=== PATIENT | male | born 1970 | race Caucasian/White ===

== ENCOUNTER → 2020-11-08 | Outpatient (CLI) | payer BC ==
--- NOTE | 2020-11-08 09:29 | CT ---
EXAMINATION TYPE: CT abdomen pelvis wo con DATE OF EXAM: 11/08/2020 COMPARISON: None HISTORY: Kidney stone, hematuria CT DLP: 715.6 mGycm Automated exposure control for dose reduction was used. TECHNIQUE: Helical acquisition of images was performed from the lung bases through the pelvis. FINDINGS: The visualized portions lung bases are clear. There are no gallstones. The gallbladder is not distended and there is no gross biliary ductal dilata tion. There is no organomegaly involving the liver, pancreas, spleen or adrenal glands. There is mild left hydronephrosis and left hydroureter. There is a 3 mm calculus in the region of the left UVJ. There is mild focal thickening of the posterior wall the urinary bladder. There is mild en largement of the prostate gland and there is dense prostatic calcification. The bowel loops are normal in caliber. No inflammatory changes are identified in the mesentery. There is no free intraperitoneal air or fluid. The caliber of the abdominal aorta is normal and there is no retroperitoneal adenopathy or hemorrhage . The osseous structures and soft tissues are intact. IMPRESSION: Mild left hydronephrosis and hydroureter secondary to 3 mm calculus in the left UVJ. There is questio nable mild thickening or mass the posterior wall of the urinary bladder in the region of the UVJ. Fur ther evaluation with post IV contrast CT abdomen and pelvis might be useful for further evaluation or characterization of the urinary bladder abnormality.
== END | disposition home or self-care (01) ==
LOC: RADCTMAIN 08:55
PROVIDERS: ATTEND Family Medicine
DX: N13.2 Hydronephrosis with renal and ureteral calculous obstruction (principal)
CPT/HCPCS: 74176

== ENCOUNTER 2023-03-25 18:18 | Observation (INO) | payer BC ==
--- NOTE | 2023-03-25 18:38 | ED ---
Recheck HPI - General Source: patient, family, RN notes reviewed Mode of arrival: ambulatory Limitations: no limitations - History of Present Illness MD Complaint: other (Elevated BP) <Bruna Aguirre - Last Filed: 03/25/23 18:42> <Efrain Garcia - Last Filed: 03/25/23 20:36> - General Chief Complaint: Recheck/Abnormal Lab/Rx Stated Complaint: High Blood Pressure, Lightheaded Time Seen by Provider: 03/25/23 18:37 - History of Present Illness Initial Comments: This is a 52 year old male who presents to the emergency department for elevated blood pressure. States that this morning he felt lightheaded and flush. This prompted him to check his BP, and he states that it was elevated. This seemed to improve and he used his exercise bike. States that about 15 minutes after he got off, his BP was elevated again and he felt lightheaded and flush. He is no longer taking BP medication, as his PCP is no longer in business, and he has not yet established with a new PCP. Reports one episode of chest pain earlier today. Denies any headaches or visual changes. (Bruna Aguirre) Dictation was produced using [employer] dictation software. please excuse any grammatical, word or spelling errors. Chief Complaint: 52-year-old male presents with hypertension History of Present Illness: Patient is 52-year-old male who has past medical hi story dyslipidemia and hypertension. He has had hypertension for several years. He spent lisinopril. He is having trouble following up with primary care doctor because his primary care physician closest practice. He hasn't had any blood pressure medications for several months. Denies any chest pain. No shortness of breath or strokelike symptoms. Denies any headache. The ROS documented in this emergency department record has been reviewed and confirmed by me. Those systems with pertinent positive or negative responses have been documented in the HPI. All other systems are other negative and/or noncontributory. (Efrain Garcia) - Related Data Home Medications Medication Instructions Recorded Confirmed Ascorbic Acid [Vitamin C] 1,000 mg PO Q3D 03/25/23 03/25/23 Aspirin EC [Ecotrin Low Dose] 81 mg PO DAILY 03/25/23 03/25/23 Cholecalciferol (Vitamin D3) 125 mcg PO Q3D 03/25/23 03/25/23 [Vitamin D3 (125 MCG = 5,000 IU)] Magnesium 350mg 350 mg PO HS 03/25/23 03/25/23 Allergies Allergy/AdvReac Type Severity Reaction Status Date / Time No Known Allergies Allergy Verified 03/25/23 19:56 Review of Systems ROS Other: All systems not noted in ROS Statement are negative. <Bruna Aguirre - Last Filed: 03/25/23 18:42> ROS Other: All systems not noted in ROS Statement are negative. <Efrain Garcia - Last Filed: 03/25/23 20:36> ROS Statement: Those systems with pertinent positive or pertinent negative responses have been documented in the HPI. General Exam <Bruna Aguirre - Last Filed: 03/25/23 18:42> <Efrain Garcia - Last Filed: 03/25/23 20:36> - General Exam Comments Initial Comments: Visual Physical Exam Vital signs reviewed General: Well-appearing, nontoxic, no acute distress. Head: Normocephalic, atraumatic Eyes: PERRLA, EOMI ENT: Airway patent Chest: Nonlabored breathing Skin: No visual rash, normal skin tone Neuro: Alert and oriented 3 Musculoskeletal: No gross abnormalities I performed the QuickNote portion of this chart. Signed Bruna Aguirre PA-C. (Bruna Aguirre) PHYSICAL EXAM: General Impression: Alert and oriented x3, not in acute distress HEENT: Normocephalic atraumatic, extra-ocular movements intact, pupils equal and reactive to light bilaterally, mucous membranes moist. Cardiovascular: Heart regular rate and rhythm Chest: Able to complete full sentences, no retractions, no tachypnea Abdomen: abdomen soft, non-tender, non-distended, no organomegaly Musculoskeletal: Pulses present and equal in all extremities, no peripheral edema Motor: no focal deficits noted Neurological: CN II-XII grossly intact, no focal motor or sensory deficits noted Skin: Intact with no visualized rashes Psych: Normal affect and mood (Efrain Garcia) Course <Efrain Garcia - Last Filed: 03/25/23 20:36> Vital Signs 03/25/23 03/25/23 03/25/23 18:35 19:20 19:45 Temperature 98.2 F Pulse Rate 102 H 105 H 111 H Respiratory 20 16 18 Rate Blood Pressure 237/118 228/120 238/107 O2 Sat by Pulse 96 95 96 Oximetry 03/25/23 03/25/23 20:15 20:20 Temperature 98.1 F Pulse Rate 107 H 100 Respiratory 18 14 Rate Blood Pressure 211/104 190/110 O2 Sat by Pulse 96 97 Oximetry - Reevaluation(s) Reevaluation #1: 03/25/23 19:17 My EKG interpretation: Ventricular rate 90, sinus rhythm,. Interval 85, QRS 15, QTc 387. No [place] prolongation, no QTC prolongation, no ST or T-wave changes noted. Overall, this EKG is unremarkable (Efrain Garcia) Reevaluation #2: 03/25/23 19:17 This is seen and evaluated in room #24. Vital signs shows blood pressure 237/118, heart rate is 102, rest of vital signs within acceptable limits. Patient has a poor social situation. He does not have any axis or reasonable access to a primary care doctor for outpatient management of blood pressure management. He is currently not on any medications for blood pressure due to noncompliance. He is agreeable for admission. Clinical presentation consistent with asymptomatic hypertension. 03/25/23 19:18 (Efrain Garcia) Medical Decision Making - Lab Data Result diagrams: 03/25/23 18:59 03/25/23 18:59 <Efrain Garcia - Last Filed: 03/25/23 20:36> - Medical Decision Making Was pt. sent in by a medical professional or institution (, PA, STRIP POLISHER, urgent care, hospital, or long-term...) When possible be specific @ -No Did you speak to anyone other than the patient for history (EMS, parent, family, police, friend...)? What history was obtained from this source @ -No Did you review nursing and triage notes (agree or disagree)? Why? @ -I reviewed and agree with nursing and triage notes Were old charts reviewed (outside hosp., previous admission, EMS record, old EKG, old radiological studies, urgent care reports/EKG's, long-term records)? Report findings @ -No old charts were reviewed Differential Diagnosis (chest pain, altered mental status, abdominal pain women, abdominal pain men, vaginal bleeding, musculoskeletal, weakness, fever, dyspnea, syncope, headache, dizziness, GI bleed, back pain, seizure, CVA, palpatations, mental health)? @ -not applicable EKG interpreted by me (3pts min.). @ -None done X-rays interpreted by me (1pt min.). @ -None done CT interpreted by me (1pt min.). @ -None done U/S interpreted by me (1pt. min.). @ -None done What testing was considered but not performed or refused? (CT, X-rays, U/S, labs)? Why? @ -None What meds were considered but not given or refused? Why? @ -None Did you discuss the management of the patient with other professionals (professionals i.e. , PA, STRIP POLISHER, lab, RT, psych nurse, rn social services, fur glosser, teacher, traffic officer, rifle case repairer)? Give summary @ -Discussed with Dr. Thomson for observation admission. She requested patient be started on oral lisinopril and have when necessary hydralazine Was smoking cessation discussed for >3mins.? @ -No Was critical care preformed (if so, how long)? @ -No Were there social determinants of health that impacted care today? How? (Homelessness, low income, unemployed, alcoholism, drug addiction, transport ation, low edu. Level, literacy, decrease access to med. care, group home, rehab)? @ -No Was there de-escalation of care discussed even if they declined (Discuss DNR or withdrawal of care, Hospice)? DNR status @ -No What co-morbidities impacted this encounter? (DM, HTN, Smoking, COPD, CAD, Cancer, CVA, ARF, Chemo, Hep., AIDS, mental health diagnosis, sleep apnea, morbid obesity)? @ -None Was patient admitted / discharged? Hospital course, mention meds given and route, prescriptions, significant lab abnormalities, going to OR and other pertinent info. @ -52-year-old male presents to the emergency Department with malignant hypertension. He is asymptomatic. Vital signs upon arrival shows blood pressure 237/118. Laboratory evaluation is unremarkable. No elevated renal function. Patient would likely benefit from observation admission for blood pressure control and establishment of blood pressure medications. Patient recently lost his primary care doctor and will have likely difficulty getting an outpatient appointment within a reasonable time. Patient grew for admission. Started on lisinopril and hydralazine. Undiagnosed new problem with uncertain prognosis? @ -No Drug Therapy requiring intensive monitoring for toxicity (Heparin, Nitro, Insulin, Cardizem)? @ -No Were any procedures done? @ -No Diagnosis/symptom? Acute, or Chronic, or Acute on Chronic? Uncomplicated (without systemic symptoms) or Complicated (systemic symptoms)? @ -Malignant hypertension Side effects of treatment? @ -No Exacerbation, Progression, or Severe Exacerbation? @ -No Poses a threat to life or bodily function? How? (Chest pain, [place], [place], pneumonia, PE, COPD, DKA, ARF, appy, cholecystitis, CVA, Diverticulitis, Homicidal, Suicidal, threat to staff... and all critical care pts) @ -yes (Efrain Garcia) - Lab Data Lab Results 03/25/23 03/25/23 03/25/23 Range/Units 18:59 18:59 18:59 WBC 9.2 (3.8-10.6) k/uL RBC 5.70 (4.30-5.90) m/uL Hgb 17.0 (13.0-17.5) gm/dL Hct 51.3 (39.0-53.0) % MCV 90.1 (80.0-100.0) fL MCH 29.9 (25.0-35.0) pg MCHC 33.1 (31.0-37.0) g/dL RDW 13.1 (11.5-15.5) % Plt Count 270 (150-450) k/uL MPV 7.2 Neutrophils % 62 % Lymphocytes % 30 % Monocytes % 5 % Eosinophils % 1 % Basophils % 0 % Neutrophils # 5.7 (1.3-7.7) k/uL Lymphocytes # 2.7 (1.0-4.8) k/uL Monocytes # 0.5 (0-1.0) k/uL Eosinophils # 0.1 (0-0.7) k/uL Basophils # 0.0 (0-0.2) k/uL Sodium 139 (137-145) mmol/L Potassium 4.0 (3.5-5.1) mmol/L Chloride 101 (98-107) mmol/L Carbon Dioxide 27 (22-30) mmol/L Anion Gap 11 mmol/L BUN 15 (9-20) mg/dL Creatinine 0.78 (0.66-1.25) mg/dL Est GFR (CKD-EPI)AfAm >90 (>60 ml/min/1.73 sqM) Est GFR (CKD-EPI)NonAf >90 (>60 ml/min/1.73 sqM) Glucose 106 H (74-99) mg/dL Calcium 10.1 (8.4-10.2) mg/dL Total Bilirubin 0.5 (0.2-1.3) mg/dL AST 37 (17-59) U/L ALT 40 (4-49) U/L Alkaline Phosphatase 64 (38-126) U/L Troponin I <0.012 (0.000-0.034) ng/mL Total Protein 8.2 (6.3-8.2) g/dL Albumin 4.7 (3.5-5.0) g/dL Disposition <Bruna Aguirre - Last Filed: 03/25/23 18:42> Decision Time: 20:36 <Efrain Garcia - Last Filed: 03/25/23 20:36> Clinical Impression: Hypertension Disposition: ADMITTED IP TO THIS HOSP Condition: Fair Referrals: None,Stated [Primary Care Provider] - 1-2 days
[2023-03-25] MEDS ORDERED: LABETALOL 5 MG/ML VIAL MDV IVP STA (19:13)
[2023-03-25] MEDS ORDERED: hydrALAZINE HCL 20 MG/ML 1 ML VIAL IVP STA ×2 (19:15→20:05)
[2023-03-25 19:30] LABS: Basophils % (A) 0 %; Eosinophils # (A) 0.1 k/uL (0-0.7); Eosinophils % (A) 1 %; HCT 51.3 % (39.0-53.0); Lymphocytes # (A) 2.7 k/uL (1.0-4.8); Lymphocytes % (A) 30 %; MCH 29.9 pg (25.0-35.0); MCHC 33.1 g/dL (31.0-37.0); MCV 90.1 fL (80.0-100.0); Mean Platelet Volume 7.2; Monocytes # (A) 0.5 k/uL (0-1.0); Monocytes % (A) 5 %; Neutrophils # (A) 5.7 k/uL (1.3-7.7); Neutrophils % (A) 62 %; Platelet Count 270 k/uL (150-450); RDW 13.1 % (11.5-15.5); WBC 9.2 k/uL (3.8-10.6)
[2023-03-25 19:42] LABS: ALT 40 U/L (4-49); AST 37 U/L (17-59); African American GFR (CKD) >90 (>60 ml/min/1.73 sqM); Albumin 4.7 g/dL (3.5-5.0); Alkaline Phosphatase 64 U/L (38-126); Anion Gap 11 mmol/L; Blood Urea Nitrogen 15 mg/dL (9-20); Calcium 10.1 mg/dL (8.4-10.2); Carbon Dioxide 27 mmol/L (22-30); Chloride 101 mmol/L (98-107); Glucose 106 mg/dL (74-99); Non-African American GFR(CKD) >90 (>60 ml/min/1.73 sqM); Sodium 139 mmol/L (137-145); Total Bilirubin 0.5 mg/dL (0.2-1.3); Total Protein 8.2 g/dL (6.3-8.2)
[2023-03-25] MEDS ORDERED: hydrALAZINE HCL 20 MG/ML 1 ML VIAL IVP PRN (20:22)
[2023-03-25] MEDS ORDERED: NALOXONE 0.4 MG/ML 1 ML VIAL IV PRN (20:26)
[2023-03-25] MEDS: SODIUM CHLORIDE 0.9% 1,000 ML IV SCH (20:33)
[2023-03-25] MEDS ORDERED: SODIUM CHLORIDE 0.9% 1,000 ML IV STA (20:54)
[2023-03-26] MEDS ORDERED: ACETAMINOPHEN TAB 325 MG TAB PO STA ×2 (02:51→08:41)
--- NOTE | 2023-03-26 08:24 | P.CRDCN ---
History of Present Illness History of present illness: HISTORY OF PRESENT ILLNESS: This is a 52-year-old male with a past medical history significant for hypertension and hyperlipidemia. Patient does not follow with a postdoctoral scientist. We have been asked to see the patient in consultation for hypertension. Patient examined at the bedside. Patient states yesterday morning he felt flushed and felt as though his blood pressure is elevated. He states he decided to go to work anyways in the morning. Once he got home he states that he wrote on his exercise bike for about an hour and felt fine with no symptoms. He states afterwards he sat down to relax and watch some TV and started to feel flush again. He became concerned so he told his he needed to come to the emergency room for further evaluation. Patient denies any chest pain or pressure. He denies any shortness of breath. Blood pressure is elevated with systolic around 200. Patient states he has not been taking his blood pressure medications for approximately 2 years. * EKG reveals sinus mechanism with no signs of acute ischemia * Laboratory data: WBC 9.2. Hemoglobin 17.0. Platelet count 270. Sodium 139. Potassium 4.0. BUN 15. Creatinine 0.78. Troponin negative 1 * Current home cardiac medications include none REVIEW OF SYSTEMS: At the time of my exam: CONSTITUTIONAL: Denies fever or chills. HEENT: Denies blurred vision, vision changes, or eye pain. Denies hemoptysis CARDIOVASCULAR: Denies chest pain. Denies orthopnea. Denies PND. Denies palpitations RESPIRATORY: Denies shortness of breath. GASTROINTESTINAL: Denies abdominal pain. Denies nausea or vomiting. HEMATOLOGIC: Denies bleeding disorders. GENITOURINARY: Denies any blood in urine. SKIN: Denies pruitis. Denies rash. PHYSICAL EXAM: VITAL SIGNS: Reviewed. GENERAL: Well-developed in no acute distress. HEENT: Head is normocephalic. Pupils are equal, round. Sclerae anicteric. Mucous membranes of the mouth are moist. Neck supple. No JVD or thyromegaly LUNGS: Respirations even and unlabored. Lungs essentially clear to auscultation bilaterally. HEART: Regular rate and rhythm. S1 and S2 heard. ABDOMEN: Soft. Nondistended. Nontender. EXTREMITIES: Normal range of motion. No clubbing or cyanosis. Peripheral pu lses intact. No lower extremity edema NEUROLOGIC: Awake and alert. Oriented x 3. ASSESSMENT: Hypertensive emergency Medication noncompliance, patient states he has not been taking medications for 2 years Hyperlipidemia PLAN: Patient has been started on lisinopril 20 g daily per ER physician Add amlodipine 10 mg daily and metoprolol tartrate 50 mg twice a day Continue to monitor blood pressure Add atorvastatin and fenofibrate to medication regimen as patient states he was taking these previously Obtain lipid panel, hemoglobin A1c, and TSH Obtain 2-D echo to assess cardiac structure and function Continue to monitor patient for an additional 24 hours Further recommendations pending patient's course Nurse practitioner note has been reviewed by physician. Signing provider agrees with the documented findings, assessment, and plan of care. Past Medical History Past Medical History: Hyperlipidemia, Hypertension History of Any Multi-Drug Resistant Organisms: None Reported Past Surgical History: No Surgical Hx Reported Past Anesthesia/Blood Transfusion Reactions: No Reported Reaction Past Psychological History: No Psychological Hx Reported Smoking Status: Former smoker Past Alcohol Use History: Occasional Past Drug Use History: None Reported Medications and Allergies Home Medications Medication Instructions Recorded Confirmed Type Ascorbic Acid [Vitamin C] 1,000 mg PO Q3D 03/25/23 03/25/23 History Aspirin EC [Ecotrin Low Dose] 81 mg PO DAILY 03/25/23 03/25/23 History Cholecalciferol (Vitamin D3) 125 mcg PO Q3D 03/25/23 03/25/23 History [Vitamin D3 (125 MCG = 5,000 IU)] Magnesium 350mg 350 mg PO HS 03/25/23 03/25/23 History Allergies Allergy/AdvReac Type Severity Reaction Status Date / Time No Known Allergies Allergy Verified 03/25/23 19:56 Physical Exam Vitals: Vital Signs Temp Pulse Resp BP Pulse Ox 03/26/23 06:59 100 16 195/101 97 03/26/23 04:47 111 H 16 186/95 97 03/26/23 01:36 105 H 16 193/113 96 03/26/23 00:30 105 H 16 195/105 97 03/25/23 23:04 112 H 16 219/114 97 03/25/23 21:33 110 H 16 198/107 96 03/25/23 21:00 98.6 F 03/25/23 20:42 98.7 F 03/25/23 20:20 98.1 F 100 14 190/110 97 03/25/23 20:15 107 H 18 211/104 96 03/25/23 19:45 111 H 18 238/107 96 03/25/23 19:20 105 H 16 228/120 95 03/25/23 18:35 98.2 F 102 H 20 237/118 96 Intake and Output 03/25/23 03/26/23 03/26/23 22:59 06:59 14:59 Other: Weight 95.254 kg Results 03/25/23 18:59 03/25/23 18:59 Cardiac Enzymes 03/25/23 03/25/23 Range/Units 18:59 18:59 AST 37 (17-59) U/L Troponin I <0.012 (0.000-0.034) ng/mL CBC 03/25/23 Range/Units 18:59 WBC 9.2 (3.8-10.6) k/uL RBC 5.70 (4.30-5.90) m/uL Hgb 17.0 (13.0-17.5) gm/dL Hct 51.3 (39.0-53.0) % Plt Count 270 (150-450) k/uL Comprehensive Metabolic Panel 03/25/23 Range/Units 18:59 Sodium 139 (137-145) mmol/L Potassium 4.0 (3.5-5.1) mmol/L Chloride 101 (98-107) mmol/L Carbon Dioxide 27 (22-30) mmol/L BUN 15 (9-20) mg/dL Creatinine 0.78 (0.66-1.25) mg/dL Glucose 106 H (74-99) mg/dL Calcium 10.1 (8.4-10.2) mg/dL AST 37 (17-59) U/L ALT 40 (4-49) U/L Alkaline Phosphatase 64 (38-126) U/L Total Protein 8.2 (6.3-8.2) g/dL Albumin 4.7 (3.5-5.0) g/dL Current Medications Generic Name Dose Route Start Last Admin Trade Name Freq PRN Reason Stop Dose Admin Amlodipine Besylate 10 mg 03/26/23 09:00 Amlodipine 10 Mg Tab PO DAILY ALISTAIR Sodium Chloride 1,000 mls @ 20 mls/hr 03/25/23 20:30 03/25/23 20:33 Saline 0.9% IV 20 mls/hr .Q24H ALISTAIR Administration Lisinopril 20 mg 03/26/23 09:00 Lisinopril 20 Mg Tab PO DAILY ALISTAIR Metoprolol Tartrate 50 mg 03/26/23 09:00 Metoprolol Tartrate 50 Mg Tab PO BID ALISTAIR Naloxone HCl 0.2 mg 03/25/23 20:26 Naloxone 0.4 Mg/Ml 1 Ml Vial IV Q2M PRN Opioid Reversal Intake and Output 03/25/23 03/26/23 03/26/23 22:59 06:59 14:59 Other: Weight 95.254 kg 03/25/23 18:59 03/25/23 18:59
[2023-03-26] MEDS: FENOFIBRATE 160 MG TAB PO SCH (08:49)
[2023-03-26] MEDS: METOPROLOL TARTRATE 50 MG TAB PO SCH ×2 (08:50→19:52)
[2023-03-26] MEDS: lisinopriL 20 MG TAB PO SCH (08:50)
[2023-03-26] MEDS: amLODIPine 10 MG TAB PO SCH (08:51)
[2023-03-26 11:20] LABS: Chol/HDL Ratio 4.77 Ratio; LDL Cholesterol,Calculated 120.2 mg/dL (0.0-131.0)
--- NOTE | 2023-03-26 11:56 | P.HPIM ---
History of Present Illness 2-year-old male admitted for elevated blood pressures systolic is going about 200. Although patient doesn't have any symptoms of hypertensive emergency. Patient denied any chest pain. Patient is feeling better now wishes to go home. Patient was started on lisinopril which she is supposed to take be taking 2 years ago. Considering has highly elevated blood pressures amlodipine as well as a beta emily was added by cardiology and recommending monitoring one more night and the echocardiogram. Patient blood pressure is 170/110 EKG did not show any significant abnormality. REVIEW OF SYSTEMS: CONSTITUTIONAL: No fever, no malaise, no fatigue. HEENT: No recent visual problems or hearing problems. Denied any sore throat. CARDIOVASCULAR: No chest pain, orthopnea, PND, no palpitations, no syncope. PULMONARY: No shortness of breath, no cough, no hemoptysis. GASTROINTESTINAL: No diarrhea, no nausea, no vomiting, no abdominal pain. NEUROLOGICAL: No headaches, no weakness, no numbness. HEMATOLOGICAL: Denies any bleeding or petechiae. GENITOURINARY: Denies any burning micturition, frequency, or urgency. MUSCULOSKELETAL/RHEUMATOLOGICAL: Denies any joint pain, swelling, or any muscle pain. ENDOCRINE: Denies any polyuria or polydipsia. The rest of the 14-point review of systems is negative. PHYSICAL EXAMINATION: GENERAL: The patient is alert and oriented x3, not in any acute distress. Well developed, well nourished. HEENT: Pupils are round and equally reacting to light. EOMI. No scleral icterus. No conjunctival pallor. Normocephalic, atraumatic. No pharyngeal erythema. No thyromegaly. CARDIOVASCULAR: S1 and S2 present. No murmurs, rubs, or gallops. PULMONARY: Chest is clear to auscultation, no wheezing or crackles. ABDOMEN: Soft, nontender, nondistended, normoactive bowel sounds. No palpable organomegaly. MUSCULOSKELETAL: No joint swelling or deformity. EXTREMITIES: No cyanosis, clubbing, or pedal edema. NEUROLOGICAL: Gross neurological examination did not reveal any focal deficits. SKIN: No rashes. Assessment and plan -Hypertensive urgency: Patient is on the lisinopril, amlodipine, beta emily monitor 1 more night echocardiogram possibly of discharge tomorrow low salt diet dietary counseling and lifestyle modification counseling was provided --Hyperlipidemia patient takes fenofibrate statin was added DVT prophylaxis: Early ambulation Past Medical History Past Medical History: Hyperlipidemia, Hypertension History of Any Multi-Drug Resistant Organisms: None Reported Past Surgical History: No Surgical Hx Reported Past Anesthesia/Blood Transfusion Reactions: No Reported Reaction Past Psychological History: No Psychological Hx Reported Smoking Status: Former smoker Past Alcohol Use History: Occasional Past Drug Use History: None Reported Medications and Allergies Home Medications Medication Instructions Recorded Confirmed Type Ascorbic Acid [Vitamin C] 1,000 mg PO Q3D 03/25/23 03/25/23 History Aspirin EC [Ecotrin Low Dose] 81 mg PO DAILY 03/25/23 03/25/23 History Cholecalciferol (Vitamin D3) 125 mcg PO Q3D 03/25/23 03/25/23 History [Vitamin D3 (125 MCG = 5,000 IU)] Magnesium 350mg 350 mg PO HS 03/25/23 03/25/23 History Allergies Allergy/AdvReac Type Severity Reaction Status Date / Time No Known Allergies Allergy Verified 03/25/23 19:56 Physical Exam Vitals: Vital Signs Temp Pulse Resp BP Pulse Ox 03/26/23 10:29 84 18 170/110 97 03/26/23 08:52 105 H 18 194/112 96 03/26/23 06:59 100 16 195/101 97 03/26/23 04:47 111 H 16 186/95 97 03/26/23 01:36 105 H 16 193/113 96 03/26/23 00:30 105 H 16 195/105 97 03/25/23 23:04 112 H 16 219/114 97 03/25/23 21:33 110 H 16 198/107 96 03/25/23 21:00 98.6 F 03/25/23 20:42 98.7 F 03/25/23 20:20 98.1 F 100 14 190/110 97 03/25/23 20:15 107 H 18 211/104 96 03/25/23 19:45 111 H 18 238/107 96 03/25/23 19:20 105 H 16 228/120 95 03/25/23 18:35 98.2 F 102 H 20 237/118 96 Intake and Output 03/25/23 03/26/23 03/26/23 22:59 06:59 14:59 Other: Weight 95.254 kg Results CBC & Chem 7: 03/25/23 18:59 03/25/23 18:59 Labs: Abnormal Lab Results - Last 24 Hours (Table) 03/25/23 03/25/23 Range/Units 18:59 18:59 Glucose 106 H (74-99) mg/dL Triglycerides 205.00 H (0.00-149.00) mg/dL Cholesterol 204.00 H (0.00-200.00) mg/dL VLDL Cholesterol, Calc 41.00 H (5.00-40.00) mg/dL Thrombosis Risk Factor Assmnt - Choose All That Apply Any of the Below Risk Factors Present?: Yes Each Factor Represents 1 point: Age 41-60 years Other Risk Factors: No Other congenital or acquired thrombophilia - If yes, enter type in comment: No Thrombosis Risk Factor Assessment Total Risk Factor Score: 1 Thrombosis Risk Factor Assessment Level: Low Risk
[2023-03-26] MEDS: SODIUM CHLORIDE 0.9% 1,000 ML IV SCH (19:53)
[2023-03-26] MEDS ORDERED: ATORVASTATIN 20 MG TAB PO SCH (21:00)
[2023-03-27 02:41] VITALS: TEMP 97.9
[2023-03-27] MEDS: amLODIPine 10 MG TAB PO SCH (08:01)
[2023-03-27] MEDS: METOPROLOL TARTRATE 50 MG TAB PO SCH (08:01)
[2023-03-27] MEDS: lisinopriL 20 MG TAB PO SCH (08:01)
[2023-03-27] MEDS: FENOFIBRATE 160 MG TAB PO SCH (08:01)
[2023-03-27 11:29] VITALS: BP 149/78; PULSE 74; RESP 16
--- NOTE | 2023-03-27 12:09 | CA ---
Transthoracic Echo Report Name: John Kirkpatrick Age: 52 Gender: M : 1970 Exam Date: 03/26/2023 13:03 Exam Location: [facility] Ht (in): 66 Wt (lb): 210 Ordering Physician: Imelda Engle Attending/Referring Phys: [id number], Kadie [employer] Trimmer Erasmo Bonilla Procedure CPT: Indications: LV function Cardiac Hx: Technical Quality: Fair Contrast 1: Total Dose (mL): Contrast 2: Total Dose (mL): MEASUREMENTS (Male / Female) Normal Values 2D ECHO LV Diastolic Diameter PLAX 3.8 cm 4.2 - 5.9 / 3.9 - 5.3 cm LV Systolic Diameter PLAX 2.5 cm IVS Diastolic Thickness 1.5 cm 0.6 - 1.0 / 0.6 - 0.9 cm LVPW Diastolic Thickness 1.3 cm 0.6 - 1.0 / 0.6 - 0.9 cm LV Relative Wall Thickness 0.7 RV Internal Dim ED PLAX 3.3 cm LVOT Diameter 2.2 cm Aortic Root Diameter 3.2 cm LA Systolic Diameter LX 2.5 cm 3.0 - 4.0 / 2.7 - 3.8 cm LV Diastolic Volume MOD BP 72.8 cm??? 67 - 155 / 56 - 104 cm??? LV Systolic Volume MOD BP 21.8 cm??? - 58 / 19 - 49 cm??? LV Ejection Fraction MOD BP 70.1 % >= 55 % LV Cardiac Index MOD BP 2143.7 cm???/min???m??? LV Diastolic Volume MOD 4C 83.2 cm??? LV Systolic Volume MOD 4C 21.3 cm??? LV Ejection Fraction MOD 4C 74.4 % LV Cardiac Index MOD 4C 2598.0 cm???/min???m??? LV Diastolic Length 4C 8.3 cm LV Systolic Length 4C 7.3 cm LV Diastolic Volume MOD 2C 57.6 cm??? LV Systolic Volume MOD 2C 20.8 cm??? LV Ejection Fraction MOD 2C 63.9 % LV Cardiac Index MOD 2C 1546.4 cm???/min???m??? LV Diastolic Length 2C 7.5 cm LV Systolic Length 2C 6.8 cm LA Volume 42.4 cm??? 18 - 58 / 22 - 52 cm??? Ascending Aorta Diameter 3.4 cm DOPPLER AV Peak Velocity 161.9 cm/s AV Peak Gradient 10.5 mmHg LVOT Peak Velocity 126.5 cm/s LVOT Peak Gradient 6.4 mmHg LVOT Velocity Time Integral 27.4 cm LVOT Stroke Volume 101.1 cm??? LVOT Stroke Volume Index 49.5 ml/m??? LVOT Cardiac Index 4244.6 cm???/min???m??? AV Area Cont Eq pk 2.9 cm??? MV Peak Velocity 103.6 cm/s MV Peak Gradient 4.3 mmHg MV Mean Velocity 57.4 cm/s MV Mean Gradient 1.6 mmHg MV Velocity Time Integral 25.0 cm Mitral E Point Velocity 91.3 cm/s Mitral A Point Velocity 67.3 cm/s Mitral E to A Ratio 1.4 MV Deceleration Time 129.2 ms MV E' Velocity 11.2 cm/s Mitral E to MV E' Ratio 8.2 TR Peak Velocity 136.0 cm/s TR Peak Gradient 7.4 mmHg PV Peak Velocity 109.5 cm/s PV Peak Gradient 4.8 mmHg FINDINGS Left Ventricle Normal LV size. Mild to moderate concentric LVH. Left ventricular ejection fraction is estimated at_55-60%. Right Ventricle Normal right ventricular size. Right Atrium Normal right atrial size. Left Atrium Normal left atrial size. Mitral Valve Structurally normal mitral valve. No mitral regurgitation. Aortic Valve Trileaflet aortic valve. Tricuspid Valve Structurally normal tricuspid valve. Trace TR. Pulmonic Valve Structurally normal pulmonic valve. Mild to moderate PI. Pericardium Normal pericardium. Aorta Normal size aortic root and proximal ascending aorta. CONCLUSIONS Concentric LVH with preserved systolic function Previewed by: Dr. Go Frank MD (Electronically Signed) Final Date: 27 March 2023 12:09
--- NOTE | 2023-03-27 15:36 | P.PN ---
Subjective Progress Note Date: 03/27/23 The patient is a 52-year-old male with past medical history of hypertension who presented to the hospital in hypertensive crisis. Cardiac medications were resumed as he had been noncompliant over the last 2 years. His blood pressures have improved over the last 24 hours and he states he is feeling well. No dizziness or lightheadedness when standing. He also denies any chest pain or chest pressure. GENERAL: Well-appearing, well-nourished and in no acute distress. NECK: Supple without JVD or thyromegaly. LUNGS: Breath sounds clear to auscultation bilaterally. Respiration equal and unlabored. No wheezes, rales or rhonchi. HEART: Regular rate and rhythm without murmurs, rubs or gallops. S1 and S2 heard. EXTREMITIES: Normal range of motion, no edema. No clubbing or cyanosis. Peripheral pulses intact and strong. TELEMETRY: Sinus rhythm IMPRESSION: Hypertensive urgency Medication noncompliance Hyperlipidemia PLAN: Encourage ambulation If patient remains chest pain-free and blood pressures are stable he may be discharged from the cardiac standpoint Follow-up with primary income tax expert Dr. Lizama I am dictating on behalf of Dr Go Frank's history/physical and assessment/plan. Objective - Vital Signs Vital signs: Vital Signs Temp 97.9 F 03/27/23 07:00 Pulse 74 03/27/23 11:28 Resp 16 03/27/23 11:28 BP 149/78 03/27/23 11:28 Pulse Ox 97 03/27/23 11:28 FiO2 Intake & Output 03/26/23 03/27/23 03/27/23 18:59 06:59 18:59 Intake Total 118 Balance 118 Intake: Oral 118 Other: # Voids 3 - Labs CBC & Chem 7: 03/25/23 18:59 03/25/23 18:59
[2023-03-27] MEDS ORDERED: ATORVASTATIN 40 MG TAB PO SCH (21:00)
[2023-04-02 19:37] LABS: Metanephrine, Free <25 pg/mL (< OR = 57); Normetanephrine, Free 101 pg/mL (< OR = 148); Total, Free (MN + NMN) 101 pg/mL (< OR = 205)
--- NOTE | 2023-04-03 10:00 | P.DS ---
Providers Date of admission: 03/25/23 20:26 Expected date of discharge: 03/27/23 Attending physician: Yazmin Daigle MD Consults: 03/25/23 19:59 Consult Physician Routine Consulting Provider: Miguel Youssef Consult Reason/Comments: hypertension Do you want consulting provider notified?: Yes Primary care physician: Stated None Hospital Course: Final diagnosis -Hypertensive urgency history of hypertension Hyperlipidemia Obesity with a BMI of 33.9 Noncompliance with medications Former smoker Continued alcohol use DVT prophylaxis GI prophylaxis Full code Discharge disposition Patient is being discharged in a stable condition with guarded prognosis to home. Patient will follow-up with Dr. Mykel Baptiste in the outpatient setting upon discharge to establish as patient currently has no primary care provider. Patient is to continue with current medications as prescribed below and close outpatient follow-up with cardiology as scheduled. Total time taken is greater than 35 minutes. Hospital course This is a 52-year-old male who was recently admitted with hypertensive urgency with uncontrolled blood pressure being closely monitored. Cardiology evaluated the patient making adjustments to medications underwent 2-D echo recommending outpatient follow-up possible stress testing. Patient to continue on current regimen as prescribed below and instructed to keep diary of blood pressure readings for follow-up and also to establish with a primary care provider as he does not currently have one. Patient was provided resources on discharge for primary care providers in the area. Please refer to cardiology note for further HPI. Patient blood pressure is improved on current regimen and will be going home today. Currently no reports of chest pain, shortness of breath, or palpitations. Patient is afebrile. No reports of nausea or vomiting and patient is tolerating diet. Patient will be discharged home today. Physical exam: Gen: This is a 52-year-old male who is awake, alert and oriented 3, well- developed, well-nourished, obese HEENT: Head is atraumatic, normocephalic. Pupils equal, round. Sclerae is anicteric. NECK: Supple. No JVD. No lymphadenopathy. No thyromegaly. LUNGS: Clear to auscultation. No wheezes or rhonchi. No intercostal retractions. HEART: Regular rate and rhythm. No murmur. ABDOMEN: Soft. Bowel sounds are present. No masses. No tenderness. EXTREMITIES: No pedal edema. No calf tenderness. NEUROLOGICAL: Patient is awake, alert and oriented x3. Cranial nerves 2 through 12 are grossly intact. Please refer to medication reconciliation sheet for a list of medications. The impression and plan of care has been dictated by Libby Quintero, Nurse Practitioner as directed. Dr. Inna MD I have performed a history and examination and MDM of this patient, discussed the same with the dictator, and agree with the dictator's assessment and plan as written ,documented as a scribe. Based on total visit time, I have performed more than 50% of the visit. Patient Condition at Discharge: Fair Plan - Discharge Summary Discharge Rx Participant: No New Discharge Prescriptions: New Metoprolol Tartrate [Lopressor] 50 mg PO BID #60 tab Atorvastatin [Lipitor] 40 mg PO HS #30 tab Fenofibrate [Lofibra] 160 mg PO DAILY #30 tab amLODIPine [Norvasc] 10 mg PO DAILY #30 tab lisinopriL [Zestril] 20 mg PO DAILY #30 tab Continue Aspirin EC [Ecotrin Low Dose] 81 mg PO DAILY Cholecalciferol (Vitamin D3) [Vitamin D3 (125 MCG = 5,000 IU)] 125 mcg PO Q3D Magnesium 350mg 350 mg PO HS Ascorbic Acid [Vitamin C] 1,000 mg PO Q3D Discharge Medication List Ascorbic Acid [Vitamin C] 1,000 mg PO Q3D 03/25/23 [History] Aspirin EC [Ecotrin Low Dose] 81 mg PO DAILY 03/25/23 [History] Cholecalciferol (Vitamin D3) [Vitamin D3 (125 MCG = 5,000 IU)] 125 mcg PO Q3D 03/25/23 [History] Magnesium 350mg 350 mg PO HS 03/25/23 [History] Atorvastatin [Lipitor] 40 mg PO HS #30 tab 03/27/23 [Rx] Fenofibrate [Lofibra] 160 mg PO DAILY #30 tab 03/27/23 [Rx] Metoprolol Tartrate [Lopressor] 50 mg PO BID #60 tab 03/27/23 [Rx] amLODIPine [Norvasc] 10 mg PO DAILY #30 tab 03/27/23 [Rx] lisinopriL [Zestril] 20 mg PO DAILY #30 tab 03/27/23 [Rx] Follow up Appointment(s)/Referral(s): Elena Alvarado MD [STAFF PHYSICIAN] - 1 Week Sunilkumar,Mini, MD [STAFF PHYSICIAN] - 1 Week Patient Instructions/Handouts: Chronic Hypertension (DC) Activity/Diet/Wound Care/Special Instructions: Activity Limited until follow-up Follow-up with primary care provider to establish Continue taking medications as prescribed Continue taking Norvasc 10 mg daily and is having lowered blood pressures continue with other medications and decrease the Norvasc to half tablet or 5 mg daily Follow-up with cardiology outpatient Discharge Disposition: HOME SELF-CARE
== END 2023-03-27 12:48 | disposition home or self-care (01) ==
LOC: EC 18:18 → 6NMEDSUR 20:26
PROVIDERS: ADMIT Internal Medicine; ATTEND Internal Medicine
DX: I16.1 Hypertensive emergency (principal); I10 Essential (primary) hypertension; E78.5 Hyperlipidemia, unspecified; T46.5X6A Underdosing of other antihypertensive drugs, initial encounter; Z91.148 Patient's other noncompliance with medication regimen for other reason; Z79.82 Long term (current) use of aspirin; Z87.891 Personal history of nicotine dependence; Z71.3 Dietary counseling and surveillance
CPT/HCPCS: 96376 ×2; 96361; 96374; 99284; 36415; 93005; 93306; 83835; 80061; 80053; 84443; 82533; 82088; 84484; 85025; 83036; G0378 ×3; J0360 ×2

== ENCOUNTER 2023-09-01 19:29 | Emergency (ER) | payer BC ==
[2023-09-01 19:59] VITALS: TEMP 98.5
--- NOTE | 2023-09-01 20:28 | ED ---
Headache HPI - General Chief Complaint: Headache Stated Complaint: high BP Time Seen by Provider: 09/01/23 19:57 Source: RN notes reviewed, old records reviewed Mode of arrival: ambulatory Limitations: no limitations - History of Present Illness Initial Comments: This is a 53-year-old male with elevated blood pressure. Patient states he feels like his blood pressure medications are not working and feels flushed flushed in the face feels like something is wrong. He is very concerned about his symptoms currently. He has no travel history or sick contacts no recent change in medications no fevers cough or congestion MD Complaint: headache, other (Flushed feeling of the face and hypertension) -: days(s) Severity: mild Severity scale (1-10): 2 Quality: pulsatile Consistency: constant, intermittent Worsens With: none Other Symptoms: chest pain Treatments Prior to Arrival: none - Related Data Home Medications Medication Instructions Recorded Confirmed Ascorbic Acid [Vitamin C] 1,000 mg PO Q3D 03/25/23 03/25/23 Aspirin EC [Ecotrin Low Dose] 81 mg PO DAILY 03/25/23 03/25/23 Cholecalciferol (Vitamin D3) 125 mcg PO Q3D 03/25/23 03/25/23 [Vitamin D3 (125 MCG = 5,000 IU)] Magnesium 350mg 350 mg PO HS 03/25/23 03/25/23 Previous Rx's Medication Instructions Recorded Atorvastatin [Lipitor] 40 mg PO HS #30 tab 03/27/23 Fenofibrate [Lofibra] 160 mg PO DAILY #30 tab 03/27/23 Metoprolol Tartrate [Lopressor] 50 mg PO BID #60 tab 03/27/23 amLODIPine [Norvasc] 10 mg PO DAILY #30 tab 03/27/23 lisinopriL [Zestril] 20 mg PO DAILY #30 tab 03/27/23 hydroCHLOROthiazide [Hydrodiuril] 25 mg PO DAILY #60 tab 09/01/23 Allergies Allergy/AdvReac Type Severity Reaction Status Date / Time No Known Allergies Allergy Verified 09/01/23 19:43 Review of Systems ROS Statement: Those systems with pertinent positive or pertinent negative responses have been documented in the HPI. ROS Other: All systems not noted in ROS Statement are negative. Past Medical History Past Medical History: Hyperlipidemia, Hypertension History of Any Multi-Drug Resistant Organisms: None Reported Past Surgical History: No Surgical Hx Reported Past Anesthesia/Blood Transfusion Reactions: No Reported Reaction Past Psychological History: No Psychological Hx Reported Smoking Status: Former smoker Past Alcohol Use History: Occasional Past Drug Use History: None Reported General Exam Limitations: no limitations General appearance: alert, in no apparent distress Head exam: Present: atraumatic, normocephalic, normal inspection Eye exam: Present: normal appearance, PERRL, EOMI. Absent: scleral icterus, conjunctival injection, periorbital swelling ENT exam: Present: normal exam, mucous membranes moist Neck exam: Present: normal inspection. Absent: tenderness, meningismus, lym phadenopathy Respiratory exam: Present: normal lung sounds bilaterally. Absent: respiratory distress, wheezes, rales, rhonchi, stridor Cardiovascular Exam: Present: regular rate, normal rhythm, normal heart sounds. Absent: systolic murmur, diastolic murmur, rubs, gallop, clicks GI/Abdominal exam: Present: soft, normal bowel sounds. Absent: distended, tenderness, guarding, rebound, rigid Extremities exam: Present: normal inspection, full ROM, normal capillary refill. Absent: tenderness, pedal edema, joint swelling, calf tenderness Back exam: Present: normal inspection Neurological exam: Present: alert, oriented X3, CN II-XII intact Psychiatric exam: Present: normal affect, normal mood Skin exam: Present: warm, dry, intact, normal color. Absent: rash Course Vital Signs 09/01/23 09/01/23 09/01/23 19:39 20:00 20:46 Temperature 98.5 F Pulse Rate 88 85 84 Respiratory 20 18 18 Rate Blood Pressure 180/94 174/89 159/86 O2 Sat by Pulse 98 100 100 Oximetry - Reevaluation(s) Reevaluation #1: Medical records reviewed Reevaluation #2: Patient symptoms improved Reevaluation #3: Patient informed of results and questions answered Reevaluation #4: Was pt. sent in by a medical professional or institution (, PA, GAME PRODUCER, urgent care, hospital, or custodial...) When possible be specific @ -no Did you speak to anyone other than the patient for history (EMS, parent, family, police, friend...)? What history was obtained from this source @ -no Did you review nursing and triage notes (agree or disagree)? Why? @ -agree Are old charts reviewed (outside hosp., previous admission, EMS record, old EKG, old radiological studies, urgent care reports/EKG's, custodial records)? Report findings @ -yes Differential Diagnosis (chest pain, altered mental status, abdominal pain women, abdominal pain men, vaginal bleeding, weakness, fever, dyspnea, syncope, headache, dizziness, GI bleed, back pain, seizure, CVA, palpatations, mental health, musculoskeletal)? @ -prior EKG interpreted by me (3pts min.). @ -yes X-rays interpreted by me (1pt min.). @ -no CT interpreted by me (1pt min.). @ -no U/S interpreted by me (1pt. min.). @ -no What testing was considered but not performed or refused? (CT, X-rays, U/S, labs)? Why? @ -none What meds were considered but not given or refused? Why? @ -none Did you discuss the management of the patient with other professionals (professionals i.e. , PA, GAME PRODUCER, lab, RT, psych nurse, social worker delinquency prevention, nuclear technician, teacher, weapons officer, top case assembler)? Give summary @ -no Was smoking cessation discussed for >3mins.? @ -no Was critical care preformed (if so, how long)? @ -no Were there social determinants of health that impacted care today? How? (Homelessness, low income, unemployed, alcoholism, drug addiction, transportation, low edu. Level, literacy, decrease access to med. care, snf, rehab)? @ -none Was there de-escalation of care discussed even if they declined (Discuss DNR or withdrawal of care, Hospice)? DNR status @ -no What co-morbidities impacted this encounter? (DM, HTN, Smoking, COPD, CAD, Cancer, CVA, ARF, Chemo, Hep., AIDS, mental health diagnosis, sleep apnea, morbid obesity)? @ -none Was patient admitted / discharged? Hospital course, mention meds given and route, prescriptions, significant lab abnormalities, going to OR and other pertinent info. @ - 53 male to ER for evaluation of headache and high blood pressure. Patient has improvement in symptoms of both. Patient feels well can be discharged home Discharge Undiagnosed new problem with uncertain prognosis? @ -no Drug Therapy requiring intensive monitoring for toxicity (Heparin, Nitro, Insulin, Cardizem)? @ -no Were any procedures done? @ -no Diagnosis/symptom? @ -Hypertension Acute, or Chronic, or Acute on Chronic? @ -Acute Uncomplicated (without systemic symptoms) or Complicated (systemic symptoms)? @ -Complicated Side effects of treatment? @ -no Exacerbation, Progression, or Severe Exacerbation? @ -exacerbation Poses a threat to life or bodily function? How? (Chest pain, USA, ID, pneumonia, PE, COPD, DKA, ARF, appy, cholecystitis, CVA, Diverticulitis, Homicidal, Suicidal, threat to staff... and all critical care pts) @ -yes with cause of chest pain Reevaluation #5: Differential Headache: Migraine, tension, cluster, carbon monoxide, central venous thrombosis, pension karma temporal arteritis, acute closure glaucoma, intercranial hemorrhage, mastoiditis, sinusitis, head injury, this is not meant to be an all-inclusive list. Medical Decision Making - Medical Decision Making 53 male to ER for evaluation of headache and high blood pressure. Patient has improvement in symptoms of both. Patient feels well can be discharged home - EKG Data -: EKG Interpreted by Me (EKG is sinus 81 NV 156 QRS 108 QTc 402) Disposition Clinical Impression: Hypertension Disposition: HOME SELF-CARE Condition: Good Instructions (If sedation given, give patient instructions): Hypertension (ED) Prescriptions: hydroCHLOROthiazide [Hydrodiuril] 25 mg PO DAILY #60 tab Is patient prescribed a controlled substance at d/c from ED?: No Referrals: Jr Sheridan MD [Primary Care Provider] - 1-2 days Time of Disposition: 20:40
[2023-09-01] MEDS: hydroCHLOROthiazide 25 MG TAB PO STA (20:43)
[2023-09-01] MEDS: cloNIDine HCL 0.1 MG TAB PO STA (20:43)
[2023-09-01 20:58] VITALS: BP 159/86; PULSE 84; RESP 18
== END 2023-09-01 20:47 | disposition home or self-care (01) ==
LOC: EC 19:29
DX: I10 Essential (primary) hypertension (principal); Z79.82 Long term (current) use of aspirin; Z87.891 Personal history of nicotine dependence
CPT/HCPCS: 99284